=== PATIENT | male | born 2000 | race Asian ===

== ENCOUNTER 2021-09-22 23:30 | Emergency (ER) | payer OTHER ==
[~2021-09-22] VITALS: Ht 175.3 cm; Wt 65.8 kg
--- NOTE | 2021-09-22 23:56 | NUR ---
Dr. Avelar examining patient.
--- NOTE | 2021-09-23 00:02 | NUR ---
PT DONNA CARABALLO. TAKEN TO BED 11
[2021-09-23 00:05] VITALS: BP 117/70
[2021-09-23 00:16] VITALS: BP 111/64
[2021-09-23] MEDS ORDERED: NACL 0.9% 1,000 ML IV ONE (00:20)
[2021-09-23] MEDS ORDERED: NACL 0.9% 2,000 ML IV ONE (00:20)
[2021-09-23 00:38] LABS: HEMATOCRIT 40.5 % (36-52); MEAN CORPUSCULAR HEMOGLOBIN 22 pg (27-31); MEAN CORPUSCULAR HGB CONC 32 g/dL (33-37); MEAN CORPUSCULAR VOLUME 67.5 fL (80-94); PLATELET COUNT (AUTO) 230 K/uL (140-450); RED CELL DISTRIBUTION WIDTH 16.1 % (11.6-13.7); WHITE BLOOD COUNT (AUTO) 7.8 K/uL (4.5-11.0)
--- NOTE | 2021-09-23 00:57 | NUR ---
PLACED ON MONITOR VS WITHIN DEFINED LIMITS. ETOH UNABLE TO OBTAIN INFO. PLACED IN LEFT LATERAL POSITION WITH HOB UP PROVIDED EMESIS BAG. NAD NOTED.
[2021-09-23 00:59] LABS: ALBUMIN 4.1 g/dL (3.4-5.0); ANION GAP 15.1 (8-16); CARBON DIOXIDE 24.4 mmol/L (21-32); POTASSIUM 3.5 mmol/L (3.5-5.1); TOTAL BILIRUBIN 0.8 mg/dL (0.0-1.0)
[2021-09-23 01:02] LABS: EOSINOPHILS % (MANUAL) 1 % (0-4); LYMPHOCYTES % (MANUAL) 7 % (20-46); MONOCYTES % (MANUAL) 3 % (5-12)
--- NOTE | 2021-09-23 02:19 | NUR ---
CATH FOR UDS OBTAINED, PT NOW MORE AWAKE. ABLE TO ANSWER QUESTIONS. FALLS ASLEEP EASILY. NEURO INTACT AT THIS TIME. NAD NOTED. AWAITING DECREASED ETOH EFFECTS/LEVEL
--- NOTE | 2021-09-23 02:45 | NUR ---
PT AAOx4. CHRISTINAYolie LUCAS TO SEND ER TO [facility] PT.
[2021-09-23 03:15] VITALS: BP 87/57
--- NOTE | 2021-09-23 03:16 | NUR ---
Patient discharged with v/s stable. Written and verbal after care instructions given and explained. Patient verbalized understanding. Ambulatory with steady gait. All questions addressed prior to discharge. Advised to follow up with PMD.
[2021-09-23 03:20] LABS: BARBITURATE, URINE NEGATIVE ng/ml (NEG <=200); BENZODIAZEPINE, URINE NEGATIVE ng/mL (NEG <=200); CANNABINOID, URINE NEGATIVE ng/mL (NEG <=50); COCAINE, URINE NEGATIVE ng/mL (NEG <=300); OPIATE, URINE NEGATIVE ng/mL (NEG <=2000); PHENCYCLIDINE SCREEN,URINE NEGATIVE ng/mL (NEG <=25)
== END 2021-09-23 03:16 | disposition home or self-care (01) ==
LOC: MED 23:30
DX: F10.129 Alcohol abuse with intoxication, unspecified (principal); Y90.9 Presence of alcohol in blood, level not specified
CPT/HCPCS: 36415; 80053; 80305; 85025; 99283; G0482